=== PATIENT | female | born 1980 | race African-American/Black ===

== ENCOUNTER 2017-09-29 17:44 | Emergency (ER) | payer MEDICAID ==
[~2017-09-29] VITALS: Ht 165.1 cm; Wt 71.0 kg
[2017-09-29 17:50] VITALS: BP 154/91
[2017-09-29] MEDS ORDERED: TETANUS, DIPHTHERIA, PERTUSSIS VAC/PF 0.5ML (>7YR OLD) IM ONE (23:30)
[2017-09-29] MEDS ORDERED: ONDANSETRON 4MG ODT PO ONE (23:30)
== END 2017-09-30 00:13 | disposition home or self-care (01) ==
LOC: ER 18:07
DX: S61.051A Open bite of right thumb without damage to nail, initial encounter (principal); R11.0 Nausea; W54.0XXA Bitten by dog, initial encounter; Y93.89 Activity, other specified; Y99.8 Other external cause status; Y92.89 Other specified places as the place of occurrence of the external cause
CPT/HCPCS: 90471; 90715; 99283; Q0162

== ENCOUNTER 2019-09-24 12:23 | Emergency (ER) | payer MEDICAID, OTHER ==
[~2019-09-24] VITALS: Ht 165.1 cm; Wt 73.0 kg
[2019-09-24 12:38] VITALS: BP 157/94
[2019-09-24] MEDS ORDERED: KETOROLAC 30MG/ML VIAL IM ONE (14:45)
== END 2019-09-24 15:45 | disposition home or self-care (01) ==
LOC: ER 12:34
DX: M75.22 Bicipital tendinitis, left shoulder (principal)
CPT/HCPCS: 73030; 96372; 99283; J1885

== ENCOUNTER 2020-10-04 11:50 | Emergency (ER) | payer MEDICAID ==
[~2020-10-04] VITALS: Ht 162.6 cm; Wt 79.7 kg
[2020-10-04 11:57] VITALS: BP 155/99
== END 2020-10-04 12:50 | disposition home or self-care (01) ==
LOC: ER 11:50
DX: J32.9 Chronic sinusitis, unspecified (principal)
CPT/HCPCS: 99281

== ENCOUNTER 2023-11-07 12:16 | Emergency (ER) | payer MEDICAID, OTHER ==
[~2023-11-07] VITALS: Ht 165.1 cm; Wt 68.0 kg
[2023-11-07 12:24] VITALS: BP 166/85; RESP 20; TEMP 97.7; O2SAT 98
[2023-11-07 12:32] VITALS: PULSE 103
== END 2023-11-07 13:36 | disposition left against medical advice (07) ==
LOC: ER 12:16
DX: K08.89 Other specified disorders of teeth and supporting structures (principal); Z53.21 Procedure and treatment not carried out due to patient leaving prior to being seen by health care provider
CPT/HCPCS: 99281

== ENCOUNTER 2025-06-22 18:57 | Emergency (ER) | payer OTHER ==
[~2025-06-22] VITALS: Ht 162.6 cm; Wt 73.0 kg
[2025-06-22 19:21] VITALS: O2SAT 99
[2025-06-22 19:33] LABS: BASOPHILS % 0.7 % (0.0-2.0); EOSINOPHILS % 3.8 % (0.0-5.0); HEMATOCRIT. 37.1 % (36.0-48.0); HEMOGLOBIN. 12.4 g/dL (12.0-16.0); LYMPHOCYTES % 13.9 % (20.0-50.0); MEAN PLATELET VOLUME 7.9 fl (7.4-10.4); MONOCYTES % 14.4 % (2.0-8.0); NEUTROPHILS % 67.2 % (40.0-76.0); PLATELET 244 x1000/uL (130-400); RED BLOOD CELL COUNT 4.01 mill/uL (4.2-5.4); RED CELL DISTRIBUTION WIDTH 12.3 % (11.6-14.6)
[2025-06-22 19:46] LABS: CREATININE 0.9 mg/dL (0.6-1.0); UREA NITROGEN BLOOD 8 mg/dL (9-23)
[2025-06-22 19:47] LABS: TROPONIN I HIGH SENSITIVITY < 4 ng/L (3.0-34)
[2025-06-22 20:01] LABS: CLARITY URINE CLEAR (CLEAR); COLOR URINE YELLOW (YELLOW); GLUCOSE URINE NEGATIVE (NEGATIVE); KETONES URINE TRACE (NEGATIVE); LEUKOCYTE ESTERASE URINE NEGATIVE (NEGATIVE); NITRITE URINE NEGATIVE (NEGATIVE); OCCULT BLOOD URINE NEGATIVE (NEGATIVE); PH URINE 6.0 (4.5-8.0); PROTEIN URINE NEGATIVE (NEGATIVE); SPECIFIC GRAVITY URINE 1.004 (1.005-1.030); UROBILINOGEN URINE 0.2 E.U./dL (0.2-1.0)
[2025-06-22 20:48] VITALS: BP 178/109; PULSE 108; RESP 16; TEMP 37.2; O2SAT 99
[2025-06-22] MEDS ORDERED: SODIUM CHLORIDE 0.9% 1,000 ML IV ONE (21:00)
[2025-06-22] MEDS ORDERED: HYDRALAZINE 20MG/ML VIAL IV ONE (21:00)
[2025-06-22 21:49] LABS: ASPARTATE AMINOTRANSFERASE 115 IU/L (<34); BILIRUBIN DIRECT 1.3 mg/dL (<=3.0); BILIRUBIN TOTAL 1.9 mg/dL (0.1-1.0); PROTEIN TOTAL 7.1 g/dL (6.0-8.3)
== END 2025-06-22 21:15 | disposition left against medical advice (07) ==
LOC: ER 18:57
DX: R10.11 Right upper quadrant pain (principal); I10 Essential (primary) hypertension; R00.0 Tachycardia, unspecified; R79.89 Other specified abnormal findings of blood chemistry
CPT/HCPCS: 99283; 80076; 80048; 81003; 83690; 85025; 84484; 36415; J7030